=== PATIENT | male | born 1975 | race Asian ===

== ENCOUNTER 2018-04-02 16:15 | Emergency (ER) | payer MEDICAID ==
[~2018-04-02] VITALS: Ht 172.7 cm; Wt 77.1 kg
[2018-04-02 16:21] VITALS: BP 150/90
[2018-04-02] MEDS ORDERED: TRAMADOL HCL 50 MG TABLET PO ONE (19:00)
[2018-04-02] MEDS ORDERED: TRAMADOL HCL 50 MG TABLET ONE (19:10)
== END 2018-04-02 19:17 | disposition home or self-care (01) ==
LOC: ER 16:17
DX: M54.2 Cervicalgia (principal); M54.9 Dorsalgia, unspecified; I10 Essential (primary) hypertension; F17.200 Nicotine dependence, unspecified, uncomplicated; V49.59XA Passenger injured in collision with other motor vehicles in traffic accident, initial encounter; Y93.89 Activity, other specified; Y92.410 Unspecified street and highway as the place of occurrence of the external cause; Y99.8 Other external cause status
CPT/HCPCS: 72040-TC; 72070-TC; 72100-TC; A4606; Z7610